=== PATIENT | male | born 1970 | race African-American/Black ===

== ENCOUNTER 2016-09-02 21:38 | Emergency (ER) | payer OTHER ==
[~2016-09-02] VITALS: Ht 177.8 cm; Wt 102.1 kg
[2016-09-02] MEDS ORDERED: PRINIVIL10 MG PO (21:56)
[2016-09-02] MEDS ORDERED: VICO10300 PO (21:57)
[2016-09-02] MEDS ORDERED: XANAX1 MG PO (21:57)
[2016-09-03] MEDS ORDERED: Motrin,Rufen800 MG PO (00:06)
[2016-09-03] MEDS ORDERED: CYCLOBENZAPRINE5 M3 PO (00:06)
== END 2016-09-03 00:18 | disposition home or self-care (01) ==
LOC: ED 21:38
DX: S16.1XXA Strain of muscle, fascia and tendon at neck level, initial encounter (principal); S46.911A Strain of unspecified muscle, fascia and tendon at shoulder and upper arm level, right arm, initial encounter; S50.01XA Contusion of right elbow, initial encounter; S09.90XA Unspecified injury of head, initial encounter; Z79.899 Other long term (current) drug therapy; W01.0XXA Fall on same level from slipping, tripping and stumbling without subsequent striking against object, initial encounter; Y93.89 Activity, other specified; Y92.89 Other specified places as the place of occurrence of the external cause; Y99.8 Other external cause status